=== PATIENT | male | born 1980 | race Caucasian/White ===

== ENCOUNTER → 2017-08-06 | Day surgery (SDC) | payer OTHER ==
--- NOTE | 2017-08-06 12:32 | RADIOLOGY REPORT (SQ) ---
EXAM DESCRIPTION: ARTHRO WRIST INJECTION; FLUORO/NEEDLE PLACEMENT COMPLETED DATE/TIME: 08/06/2017 10:09 am REASON FOR STUDY: PAIN IN LEFT WRIST (M25.532) M25.532 PAIN IN LEFT WRIST COMPARISON: None. FLUOROSCOPY TIME: 50 seconds 3 digital radiographic images saved to PACS. LIMITATIONS: None. PROCEDURE: Procedure, risks, benefits and alternatives explained to patient who then gave written co nsent. The left wrist was marked and a time-out was called for correct marking verification. Radioca rpal site marked using fluoroscopic guidance. Wrist prepped and draped using sterile technique. Loc al anesthesia achieved using 1 mL of 1% lidocaine injection. 25 gauge needle introduced into the gopi nt space under direct fluoroscopic visualization. Non-ionic contrast instilled to confirm intra-artic ular position. Dilute gadolinium solution then injected. Needle removed and entry site covered with sterile bandage. No immediate complications noted. TECHNIQUE: Digital images acquired during fluoroscopy and stored on PACS. Patient immediately take n to the MR suite for additional imaging. INJECTION LOCATION: Left radioscaphoid joint, dorsal approach CONTRAST TYPE AND AMOUNT: 0.5 mL of Isovue-300 was injected to confirm intra-articular needle placeme nt followed by 1.5 mL of dilute gadolinium for MR arthrogram. IMPRESSION: SUCCESSFUL NEEDLE PLACEMENT AND INJECTION FOR LEFT WRIST MR ARTHROGRAM. COMMENT: Quality ID #[id number]: Final reports for procedures using fluoroscopy that document radiation exp osure indices, or exposure time and number of fluorographic images (if radiation exposure indices are not available) TECHNICAL DOCUMENTATION: JOB ID: [id number] [employer]- All Rights Reserved Reading location - IP/workstation name: [facility]
--- NOTE | 2017-08-06 12:32 | RADIOLOGY REPORT (SQ) ---
EXAM DESCRIPTION: ARTHRO WRIST INJECTION; FLUORO/NEEDLE PLACEMENT COMPLETED DATE/TIME: 08/06/2017 10:09 am REASON FOR STUDY: PAIN IN LEFT WRIST (M25.532) M25.532 PAIN IN LEFT WRIST COMPARISON: None. FLUOROSCOPY TIME: 50 seconds 3 digital radiographic images saved to PACS. LIMITATIONS: None. PROCEDURE: Procedure, risks, benefits and alternatives explained to patient who then gave written co nsent. The left wrist was marked and a time-out was called for correct marking verification. Radioca rpal site marked using fluoroscopic guidance. Wrist prepped and draped using sterile technique. Loc al anesthesia achieved using 1 mL of 1% lidocaine injection. 25 gauge needle introduced into the gopi nt space under direct fluoroscopic visualization. Non-ionic contrast instilled to confirm intra-artic ular position. Dilute gadolinium solution then injected. Needle removed and entry site covered with sterile bandage. No immediate complications noted. TECHNIQUE: Digital images acquired during fluoroscopy and stored on PACS. Patient immediately take n to the MR suite for additional imaging. INJECTION LOCATION: Left radioscaphoid joint, dorsal approach CONTRAST TYPE AND AMOUNT: 0.5 mL of Isovue-300 was injected to confirm intra-articular needle placeme nt followed by 1.5 mL of dilute gadolinium for MR arthrogram. IMPRESSION: SUCCESSFUL NEEDLE PLACEMENT AND INJECTION FOR LEFT WRIST MR ARTHROGRAM. COMMENT: Quality ID #[id number]: Final reports for procedures using fluoroscopy that document radiation exp osure indices, or exposure time and number of fluorographic images (if radiation exposure indices are not available) TECHNICAL DOCUMENTATION: JOB ID: [id number] [employer]- All Rights Reserved Reading location - IP/workstation name: [facility]
--- NOTE | 2017-08-07 07:47 | RADIOLOGY REPORT (SQ) ---
EXAM DESCRIPTION: MRI LT UPPER JOINT WITH COMPLETED DATE/TIME: 08/06/2017 11:06 am REASON FOR STUDY: PAIN IN LEFT WRIST (M25.532) M25.532 PAIN IN LEFT WRIST COMPARISON: None. TECHNIQUE: Left wrist post-arthrogram imaging includes T1 and T1 and T2 fat sat sequences. LIMITATIONS: Mild motion artifact FINDINGS: JOINT DISTENSION: Adequate. No loose body. There is extension of gadolinium contrast fro m the radiocarpal joint into the remainder of the intercarpal joints BONE MARROW: No alteration of signal to suggest marrow replacement or edema. No occult fracture. No l arge osteophytes. CARPAL ALIGNMENT AND ARTICULATION: Negative ulnar variance, with bony spurring at the distal radiouln ar joint best shown on coronal image 7. Mild subcortical bony edema in the distal ulna at the distal radioulnar joint. Normal capitolunate angle. No widening of scapholunate articulation. SCAPHOLUNATE LIGAMENT: Torn, there is contrast in the middle compartment. No widening of the scaphol unate interval LUNATO-TRIQUETRAL LIGAMENT: Torn, there is contrast in the middle compartment. No widening of the bea natotriquetral interval TFC COMPLEX: Radial attachments normal. Ulnar attachments of the triangular fibrocartilage are indis tinct. Meniscus intact. Extensor carpi ulnaris tendon normal without tendinopathy. No contrast in di stal RUJ. EXTRINSIC LIGAMENTS AND DISTAL RADIO-ULNAR JOINT: Dorsal and volar distal RUJ ligaments are not well seen. Mild dorsal Subluxation of the distal ulna with respect to the radius. 1-6 EXTENSOR COMPARTMENTS: Normal. Specifically no tendinopathy of the abductor pollicis longus or ex tensor pollicis brevis to suggest de Quervains syndrome. CARPAL TUNNEL AND MEDIAN NERVE: Normal volume and morphology of carpal tunnel proximal at the level o f the radiocarpal joint and distally at the hook of the hamate. No thickening or signal alteration of median nerve. OTHER: No other significant finding. 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
== END ==
LOC: RAD 09:34 → EDSTATUS 10:00
DX: M25.532 Pain in left wrist (principal); M19.032 Primary osteoarthritis, left wrist; S63.592A Other specified sprain of left wrist, initial encounter; X58.XXXA Exposure to other specified factors, initial encounter
CPT/HCPCS: 73222; 25246; 77002; A9576